=== PATIENT | female | born 1975 | race American Indian/Alaskan Native ===

== ENCOUNTER 2019-11-09 10:25 | Outpatient (CLI) | payer MEDICARE ==
--- NOTE | 2019-11-09 14:26 | Magnetic Resonance Report ---
BILATERAL BREAST MR WITHOUT AND WITH GADOLINIUM INDICATION: Newly diagnosed left breast cancer. COMPARISONS: None available. TECHNIQUE: Axial 1.0 mm T1 without, axial high-resolution 2.0 mm T2 and axial 1.0 mm dynamic vibrant high-resolution postcontrast T1 fat saturation sequences on a 1.5 Anabella magnet. The examination was p erformed with an 8-channel dedicated [place] breast coil. Post-processing with CAD and subtraction was performed on an [employer] workstation. 18.0 cc of MultiHance was injected for the contrast portion o f the exam. Consent was obtained prior to the administration of the contrast. The patient became naus eated with a contrast injection but was able to finish the exam. FINDINGS: RIGHT BREAST: Mild background parenchymal enhancement. No mass enhancement. No suspicious lymph nodes . LEFT BREAST: Mild background parenchymal enhancement. The known cancer is an oval relatively smooth u pper outer quadrant mass 16 cm from the nipple measuring 5.5 x 4.0 x 4.3 cm. It demonstrates heteroge neous enhancement with mixed kinetics, rapid initial enhancement, 275% peak enhancement and 24% type III washout. The mass demonstrates heterogeneous T2 signal with multiple areas of T2 hyperintensity. No other mass or suspicious enhancement. Several suspicious left axillary lymph nodes. The largest is a level 2 axillary lymph node measuring approximately 3.3 cm. IMPRESSION: 1. A known 5.5 cm left breast cancer and no additional suspicious lesion of either breast. 2. Enlarged left axillary lymph node suspicious for axillary metastasis. FINAL ASSESSMENT: BI-RADS Category 6: Known cancer A normal MRI does not exclude the presence of some forms of breast malignancy as literature reports s uggest that some forms of ductal carcinoma in situ or lobular carcinoma, particularly, may not be det ected on MRI. The sensitivity and specificity of MRI for cancers under 5 mm may be reduced. MRI does not replace the recommendation for annual conventional mammographic evaluation and should be used as an adjunct to mammography and physical examination as necessary. Signer Name: Brannon Lu MD Signed: 11/09/2019 2:21 PM Workstation Name: [id number]
--- NOTE | 2019-11-09 15:09 | Ultrasound Report ---
ULTRASOUND-GUIDED NEEDLE CORE BIOPSY LEFT AXILLARY LYMPH NODE WITH CLIP PLACEMENT CLINICAL: Newly diagnosed left breast cancer and left axillary lymphadenopathy. FINDINGS: The procedure was explained to the patient and informed consent was obtained. Ultrasound demonstrated a dominant 3+ centimeter left axillary lymph node.. I marked the breast with a felt tip marker and a timeout was called. The skin was prepped with Chloro -Prep and anesthetized with 1% lidocaine. Needle core biopsy was performed through small dermatotomy using ultrasound guidance, 2% lidocaine wi th epinephrine for deep anesthesia and an 18-gauge coaxial Achieve biopsy device. 3 cores were obtain ed and placed in formalin. A clip was deployed within the lymph node. The patient tolerated the procedure well and there were no apparent complications. Hemostasis was ach ieved with minimal effort and a sterile dressing was applied. IMPRESSION: Uncomplicated ultrasound guided needle core biopsy with clip placement left axillary lymp h node. Signer Name: Brannon Lu MD Signed: 11/09/2019 3:04 PM Workstation Name: [id number]
== END 2019-11-09 10:26 | disposition home or self-care (01) ==
LOC: SPVIMAG 10:25
PROVIDERS: ATTEND Surgery
DX: C50.412 Malignant neoplasm of upper-outer quadrant of left female breast (principal)
CPT/HCPCS: 38505; 76942; 88305; A9577; C8908; 77049

== ENCOUNTER 2019-11-16 08:01 | Outpatient (CLI) | payer MEDICARE ==
[2019-11-16 09:20] LABS: Blood Urea Nitrogen 15 mg/dL (7-17)
--- NOTE | 2019-11-16 11:12 | Cat Scan Report ---
CT CHEST WITH CONTRAST HISTORY: Newly diagnosed left breast cancer. COMPARISON: MRI breast 09/09/2019 TECHNIQUE: Routine chest CT exam performed following intravenous contrast administration.. All CT sc ans at this location are performed using CT dose reduction for ALARA by means of automated exposure c ontrol. CONTRAST: 100 mL Omnipaque 350 FINDINGS: CT CHEST: Lungs: Clear with no pulmonary nodule or mass. No pleural effusion. Trachea and Bronchi: No significant abnormality. Heart and Pericardium: No significant abnormality. Vasculature: No significant abnormality. Lymphatics: Left axillary and left subpectoral lymphadenopathy. A 2.9 cm left subpectoral lymph node contains a biopsy clip and correlates with the recently biopsied lymph node. Numerous additional smal ler left subpectoral lymph nodes and at least a couple of small but suspicious left supraclavicular l ymph nodes. These lymph nodes are suspicious based on the fact that they are asymmetric when compared to the right side. Osseous Structures: No suspicious bone lesions. Additional Findings: The known left breast cancer is an oval slightly irregular circumscribed mass in the upper outer quadrant measuring 4.8 x 4.5 cm. There is also skin thickening and soft tissue stran ding of the left breast. IMPRESSION: 1. A known 5 cm left breast cancer. 2. Left axillary and left subpectoral metastatic lymphadenopathy. 3. Small but suspicious left supraclavicular lymph nodes. 4. No pulmonary, mediastinal or skeletal metastasis. Signer Name: Brannon Lu MD Signed: 11/16/2019 11:10 AM Workstation Name: [id number]
--- NOTE | 2019-11-16 11:38 | Cat Scan Report ---
CT abdomen pelvis w con INDICATION: BREAST CANCER. TECHNIQUE: All CT scans at this location are performed using the following dose modulation technique: Automated exposure control. CONTRAST: Omnipaque 300, 100 cc IV injection. COMPARISON: None available. CT ABDOMEN: The parenchymal organs are unremarkable in appearance other than a 1.3 cm left adrenal no dule which is relatively low in density. Negative for abdominal mass, fluid or inflammation. The hilary l is not dilated or thickened. CT PELVIS: Negative for mass, adenopathy or inflammation. No suspicious bony lesion. IMPRESSION: 1. Probable left adrenal adenoma. 2. No suspicious bony or soft tissue lesion. Signer Name: Madhu Aguirre MD Signed: 11/16/2019 11:33 AM Workstation Name: [id number]
--- NOTE | 2019-11-16 13:37 | Nuclear Medicine Report ---
NUCLEAR MEDICINE BONE SCAN, WHOLE BODY INDICATION / CLINICAL INFORMATION: BREAST CANCER. Staging. TECHNIQUE: 26th mCi of Tc-99m MDP were injected IV. Images were obtained of the whole body. COMPARISON: Same-day CT of the chest, abdomen and pelvis FINDINGS: ARTICULAR STRUCTURES: Mild, relatively symmetric, periarticular activity which is likely degenerative . SKELETAL LESIONS: None. SOFT TISSUES: Normal. KIDNEYS: Normal. ADDITIONAL FINDINGS: None. IMPRESSION: 1. No significant scintigraphic abnormality. Signer Name: Efrain Martin MD Signed: 11/16/2019 1:33 PM Workstation Name: [id number]
== END 2019-11-16 08:02 | disposition home or self-care (01) ==
LOC: NM 08:01
PROVIDERS: ATTEND Surgery
DX: C50.412 Malignant neoplasm of upper-outer quadrant of left female breast (principal); C77.9 Secondary and unspecified malignant neoplasm of lymph node, unspecified
CPT/HCPCS: 36415; 71260; 74177; 78306; 82565; 84520; A9503; Q9967; U0003-CS

== ENCOUNTER 2019-11-17 14:30 | Day surgery (SDC) | payer MEDICARE ==
--- NOTE | 2019-11-16 17:25 | Short Stay Summary ---
Short Stay Documentation Date of service: 11/17/19 - History H&P: obtained from office - Allergies and Medications Current Medications: Allergies sulfamethoxazole [From Bactrim] Allergy (Verified 11/10/19 13:06) Hives trimethoprim [From Bactrim] Allergy (Verified 11/10/19 13:06) Hives Home Medications Medication Instructions Recorded Confirmed Last Taken Type Albuterol Sulfate [Proventil Hfa] 2 puff IH PRN PRN 11/10/19 11/10/19 Unknown History Budesonide/Formoterol Fumarate 2 puff IH PRN PRN 11/10/19 11/10/19 Unknown History [Symbicort 160-4.5 Mcg Inhaler] Doxycycline Hyclate [Doxycycline 100 mg PO Q12HR 11/10/19 11/10/19 Unknown History Hyclate TAB] Insulin NPH Human Isophane 10 unit SQ QAM 11/10/19 11/10/19 Unknown History [Novolin N Flexpen] Insulin NPH Human Isophane 12 unit SQ BID 11/10/19 11/10/19 Unknown History [Novolin N Flexpen] Losartan [Cozaar] 100 mg PO QDAY 11/10/19 11/10/19 Unknown History amLODIPine [Norvasc] 5 mg PO DAILY 11/10/19 11/10/19 Unknown History - Physical exam General appearance: no acute distress Lungs: Normal air movement Neurological: Normal speech - Brief post op/procedure progress note Date of procedure: 11/17/19 (dictation:[id number]) Pre-op diagnosis: left breast cancer Post-op diagnosis: same Procedure: US guided port placement IVF 700cc EBL min Anesthesia: GETA Findings: normal anatomy Surgeon: LADAN RIVERO Estimated blood loss: minimal Pathology: none Condition: stable - Hospital course Hospital course: uneventful - Disposition Condition at discharge: Stable Disposition: DC-01 TO HOME OR SELFCARE Short Stay Discharge Plan Activity: advance as tolerated Diet: regular Wound: open to air, keep clean and dry Special Instructions: no heavy lifting Additional Instructions: Post Operative Instructions Activity: no heavy lifting for next 1 week. May shower tomorrow. Pat dry the wound or wounds. Keep incision sites clean and dry After surgery, start with a light diet. Consider starting with liquids. If you do well, you can advance to a regular diet as you feel comfortable. Apply an ice pack to the wound or wounds for 10-20 minutes at a time. Do this at least 4-5 times a day. You can do it more if he would like. Pain Medication Schedule for the first 2 days after surgery: Gabapentin 300mg twice a day Tylenol 500mg four times a day (every 6 hours) After the first 2 days, then take alternating doses of ibuprofen and Tylenol as needed for pain. Take 600 mg of ibuprofen every 6 hours as needed. Take 500 mg of Tylenol every 6 hours as needed. You should alternate these 2 medicines. Make sure you take the ibuprofen with food. It is very important that you use the prescription narcotic pain medicine (hydrocodone) only for very severe pain. Do not take the narcotic medicine before you try using all the medications listed above. YOU WERE MEDICATED WITH 1 HYDROCODONE TAB BY MOUTH AT 520 PM START OTHER PAIN MEDICATION (GABAPENTIN EVERY 12 HOURS AND TYLENOL WHEN YOU GET HOME . We will call you in a couple of days to see how youre doing. If you have any questions or concerns, always feel free to call the clinic ([phone]) at any time. Follow up with: GAUTAM URRUTIA MD [Primary Care Provider] - 7 Days Forms: Outpatient Surgery DC Inst. Prescriptions: Gabapentin 300 mg PO BID #4 capsule HYDROcodone/APAP 5-325 [Merino 5-325 mg TAB] 1 each PO Q6HR PRN #10 tablet PRN Reason: Pain , Severe (7-10)
[2019-11-17] MEDS: MIDAZOLAM 2 MG/2 ML INJ IV NR ×2 (12:10→14:00)
--- NOTE | 2019-11-17 12:21 | Anesthesia Consultation ---
Anesthesia Consult and Med Hx Date of service: 11/17/19 - Airway Anesthetic Teeth Evaluation: Good ROM Head & Neck: Adequate Mental/Hyoid Distance: Adequate Mallampati Class: Class II Intubation Access Assessment: Probably Good - Pulmonary Exam CTA: Yes - Cardiac Exam Cardiac Exam: RRR - Pre-Operative Health Status ASA Pre-Surgery Classification: ASA3 Proposed Anesthetic Plan: General - Pulmonary Hx Smoking: Yes (quit 10 yrs ago) Hx Respiratory Symptoms: Yes (chronic bronchitis; used albuterol today) SOB: No Hx Sleep Apnea: No (ARCHIE PRE SCREEN LOW RISK) - Cardiovascular System Hx Hypertension: Yes (took antihypertensives today) Hx Heart Attack/AMI: No Hx Percutaneous Transluminal Coronary Angioplasty (PTCA): No - Central Nervous System CVA: No Hx Psychiatric Problems: Yes (anxiety/depression) - Gastrointestinal Hx Gastroesophageal Reflux Disease: Yes - Endocrine Hx Renal Disease: No Hx Liver Disease: No Hx Insulin Dependent Diabetes: Yes (suboptimal control) Hx Thyroid Disease: No - Hematic Hx Anemia: Yes - Other Systems Hx Cancer: Yes (breast Ca) - Additional Comments Anesthesia Medical History Comments: No hx anesthetic complications. Reports that preop glucose is at usual fasting level.
--- NOTE | 2019-11-17 12:21 | Anesthesia Day of Surgery ---
Anesthesia Day of Surgery - Day of Surgery Patient Examined: Yes Patient H&P Reviewed: Yes Patient is NPO: Yes
[~2019-11-17 14:30] MED LIST: ACETAMINOPHEN 500 MG TAB PO SCH; BUPIVACAINE-EPINEPHRINE/PF 0.5%-1:200,000 (30 ML) VIAL INFILTRATI ONE; CELECOXIB 200 MG CAP PO NR; GABAPENTIN 300 MG CAP PO NR; GELATIN SPONGE SIZE 100 TP ONE; HEPARIN 10,000 UNITS/10 ML VIAL ONE; HYDROmorphone 1 MG/1 ML INJ ONE; LACTATED RINGERS 1,000 ML IV SCH; LIDOCAINE (1%) 10 MG/1 ML VIAL 20 ML MDV ONE; LIDOCAINE MPF (2%) 20 MG/1 ML VIAL 5 ML ONE; SCOPOLAMINE TRANSDERMAL PATCH 72 HR TD NR; SODIUM CHLORIDE 0.9% 250ML 250 ML ONE; ceFAZolin/Water 2 GM/20 ML 2 GM/20 ML SYRINGE IV NR; fentaNYL 100 MCG/2 ML INJ IV PRN; propofoL 200 MG/20 ML VIAL IV ONE
[2019-11-17] MEDS ORDERED: SODIUM CHLORIDE P/F VIAL 10 ML 10 ML ONE (14:38)
[2019-11-17] MEDS ORDERED: BUPIVACAINE-EPINEPHRINE/PF 0.5%-1:200,000 (30 ML) VIAL INFILTRATI ONE (15:05)
[2019-11-17] MEDS ORDERED: HEPARIN 10,000 UNITS/10 ML VIAL IV ONE (15:06)
[2019-11-17] MEDS ORDERED: SODIUM CHLORIDE 0.9% 100 ML IVPB IV ONE (15:06)
[2019-11-17] MEDS ORDERED: SODIUM CHLORIDE 0.9% P/F 10 ML VIAL INFILTRATI ONE (15:06)
[2019-11-17] MEDS ORDERED: LIDOCAINE (1%) 10 MG/1 ML VIAL 20 ML MDV INFILTRATI ONE (15:06)
[2019-11-17] MEDS ORDERED: SODIUM CHLORIDE 0.9% IRR 1,500 ML BOTTLE IR ONE (15:06)
[2019-11-17] MEDS ORDERED: ONDANSETRON 4 MG/2 ML INJ ONE (15:32)
--- NOTE | 2019-11-17 16:17 | Fluoroscopy Report ---
INTRAOPERATIVE FLUOROSCOPY: CHEST INDICATION: PORT INSERTION/LT BREAST CANCER/POOR VENOUS ACCESS. TECHNIQUE: Intraoperative spot images were obtained during the procedure. FINDINGS: A right internal jugular vein Port-A-Cath terminates over the cavoatrial junction. No acute abnormali ty is seen. Please see the operative report for further details. Fluoroscopy Time: 22 seconds. Fluoroscopy Images: 1. Signer Name: Marcell Costa MD Signed: 11/17/2019 4:12 PM Workstation Name: [id number]
[2019-11-17] MEDS ORDERED: HYDROcodone/ACETAMINOPHEN 5-325 MG TAB PO PRN (17:18)
--- NOTE | 2019-11-17 17:19 | Operative Report ---
PREOPERATIVE DIAGNOSIS: Left breast cancer. POSTOPERATIVE DIAGNOSIS: Left breast cancer. PROCEDURES: 1. Insertion of tunneled centrally inserted central venous access device with subcutaneous port. 2. Ultrasound guidance for vascular access. ATTENDING PHYSICIAN: Hernando Bush MD ANESTHESIA: General. ESTIMATED BLOOD LOSS: Minimal. FLUIDS: 700 mL. FINDINGS: Normal anatomy. IMPLANTS: Smart Port. COMPLICATIONS: None. DISPOSITION: Stable, transferred to Recovery Room. INDICATIONS: This is a 44-year-old female with a recent diagnosis of left breast cancer. The patient in need of neoadjuvant chemotherapy. The patient referred to General Surgery for port placement. Procedure, risks, benefits were explained to the patient. Risks include but were not limited to infection, bleeding, pain, injury to surrounding structures, possible port malfunction, possible need for replacement and/or removal. The patient understood and consented. OPERATIVE NOTE: The patient was brought to the operating room and placed on the table in supine position. After adequate general anesthesia was established, ultrasound evaluation was done of subclavian vein and internal jugular vein, subclavian vein was found to be fairly deep, jugular vein was in a good location, widely patent and no evidence of any narrowing, no clots. This appeared to be the better target. Roll was placed underneath the shoulders. Sterile prep and drape was performed. Pressure points were padded. SCDs were in place. Antibiotics have been given. Time-out was called. I began by anesthetizing the planned access point. This was done under ultrasound guidance. I anesthetized the planned tract site as well under ultrasound guidance. Small incision was made in the skin under ultrasound guidance. Introducer needle was advanced into the vein. I was able to aspirate venous blood on the first attempt. Guidewire passed very easily. We confirmed its location with fluoroscopy. Guidewire was secured to the drapes. We then turned our attention to the subcutaneous pocket. Planned pocket site was anesthetized. A curvilinear incision was made. Pocket was created. Hemostasis was achieved with electrocautery. Additional local was injected. We made sure the port fit easily and then we passed the tunneler up to the neck. This went very smoothly as we had anesthetized the site and dilated the tissue within local anesthetic. Once the catheter was brought out from the neck, dilator and sheath were passed over the wire, it went very easily. Catheter was inserted, length was adjusted and then we attached to the port. We had some difficulty in aspirating and flushing, initially, it appeared as though at the neck site there was a slight kink. We freed up some of the surrounding tissue around that area and then it flowed very easily. It seemed as though because this was a small catheter 6.6 Greek and fairly soft, I think it was more prone to kinking; however, with slight pressure on the neck it then worked very nicely. My thought was that as time passes and the port was pulled down by the weight of the breast, I thought this kink would resolve itself as it required very little pressure to straighten it out. Therefore, I did not do any further dissection as it was working well. Additional local was injected, 3-0 Vicryl was used to close the deep tissue at the port site, 4-0 Monocryl subcuticular stitches were then placed. Skin was cleaned and dried. Dermabond was placed. Postoperative chest x-ray showed no evidence of any complications. JOB# [id number] RADHA/REMINGTON
[2019-11-17] MEDS ORDERED: HYDROcodone/ACETAMINOPHEN 5-325 MG TAB ONE (17:20)
[2019-11-17 18:38] VITALS: BP 151/75
--- NOTE | 2019-11-17 19:20 | Post Anesthesia Evaluation ---
- Post Anesthesia Evaluation Patient Participated: Yes Airway Patent: Yes Stable Respiratory Function: Yes Nausea/Vomiting: No Temp > 96.8F: Yes Pain Manageable: Yes Adequeate Hydration: Yes Anesthesia Complications: No
== END 2019-11-17 14:31 | disposition home or self-care (01) ==
LOC: OR 14:30
PROVIDERS: ATTEND Surgery
DX: C50.912 Malignant neoplasm of unspecified site of left female breast (principal); Z11.59 Encounter for screening for other viral diseases; I10 Essential (primary) hypertension; K21.9 Gastro-esophageal reflux disease without esophagitis; M19.90 Unspecified osteoarthritis, unspecified site; E11.9 Type 2 diabetes mellitus without complications; F31.9 Bipolar disorder, unspecified; F41.9 Anxiety disorder, unspecified; Z79.899 Other long term (current) drug therapy; Z79.4 Long term (current) use of insulin; Z87.891 Personal history of nicotine dependence; Z86.2 Personal history of diseases of the blood and blood-forming organs and certain disorders involving the immune mechanism; Z88.8 Allergy status to other drugs, medicaments and biological substances; Z98.891 History of uterine scar from previous surgery
CPT/HCPCS: 36561; 76937; 77001; 81025; 82962; C1788; J0690; J1170; J1644; J2250; J2405; J2704; J7050; J7120; U0003; A4649

== ENCOUNTER 2020-05-30 05:47 | Day surgery (SDC) | payer MEDICARE ==
[~2020-05-30 05:47] MED LIST changes: -ACETAMINOPHEN 500 MG TAB PO SCH; -BUPIVACAINE-EPINEPHRINE/PF 0.5%-1:200,000 (30 ML) VIAL INFILTRATI ONE; -CELECOXIB 200 MG CAP PO NR; -GABAPENTIN 300 MG CAP PO NR; -GELATIN SPONGE SIZE 100 TP ONE; -HEPARIN 10,000 UNITS/10 ML VIAL ONE; -HYDROmorphone 1 MG/1 ML INJ ONE; -LACTATED RINGERS 1,000 ML IV SCH; -LIDOCAINE (1%) 10 MG/1 ML VIAL 20 ML MDV ONE; -LIDOCAINE MPF (2%) 20 MG/1 ML VIAL 5 ML ONE; -SCOPOLAMINE TRANSDERMAL PATCH 72 HR TD NR; -SODIUM CHLORIDE 0.9% 250ML 250 ML ONE; -fentaNYL 100 MCG/2 ML INJ IV PRN; -propofoL 200 MG/20 ML VIAL IV ONE
[2020-05-30] MEDS ORDERED: ceFAZolin/Water 2 GM/20 ML 2 GM/20 ML SYRINGE IV NR (06:00)
[2020-05-30] MEDS ORDERED: BACTERIOSTATIC SODIUM CHLORIDE 0.9% 30 ML VIAL INFILTRATI ONE (06:42)
--- NOTE | 2020-05-30 07:10 | Anesthesia Day of Surgery ---
Anesthesia Day of Surgery - Day of Surgery Patient Examined: Yes Patient H&P Reviewed: Yes Patient is NPO: Yes
--- NOTE | 2020-05-30 07:13 | Anesthesia Consultation ---
Anesthesia Consult and Med Hx Date of service: 05/30/20 - Airway Anesthetic Teeth Evaluation: Good (Missing) ROM Head & Neck: Adequate Mental/Hyoid Distance: Adequate Mallampati Class: Class II Intubation Access Assessment: Good - Pre-Operative Health Status ASA Pre-Surgery Classification: ASA2 Proposed Anesthetic Plan: General Nerve Block: ES/TAP - Pulmonary Hx Smoking: Yes (STOPPED X 10 YRS) - Cardiovascular System Hx Hypertension: Yes (since 1995) - Central Nervous System Hx Psychiatric Problems: Yes (Anxiety/Panic attacks/Bipolar/Depression) - Gastrointestinal Hx Ulcer: Yes Hx Gastroesophageal Reflux Disease: Yes - Endocrine Hx Non-Insulin Dependent Diabetes: Yes - Hematic Hx Anemia: Yes - Other Systems Hx Cancer: Yes - Additional Comments Anesthesia Medical History Comments: Here [id number]
[2020-05-30] MEDS ORDERED: ACETAMINOPHEN 500 MG TAB PO NR (07:36)
[2020-05-30] MEDS ORDERED: HYDROmorphone 1 MG/1 ML INJ IV PRN ×2 (07:36)
[2020-05-30] MEDS ORDERED: ONDANSETRON 4 MG/2 ML INJ IV PRN (07:36)
[2020-05-30] MEDS ORDERED: MAGNESIUM OXIDE 400 MG TAB PO NR (07:36)
[2020-05-30] MEDS ORDERED: LIDOCAINE (1%) 10 MG/1 ML VIAL 20 ML MDV ONE (07:42)
[2020-05-30] MEDS ORDERED: LACTATED RINGERS 1,000 ML IV SCH (07:45)
[2020-05-30] MEDS ORDERED: GABAPENTIN 300 MG CAP PO NR (08:00)
[2020-05-30] MEDS ORDERED: MIDAZOLAM 2 MG/2 ML INJ IV NR (08:00)
--- NOTE | 2020-05-30 08:58 | Mammography Report ---
LEFT BREAST NEEDLE LOCALIZATION USING X-RAY GUIDANCE The procedure was explained to the patient and informed consent obtained. PROCEDURE: Using 3 mL of 1% buffered lidocaine, a 25 gauge needle and x-ray guidance, the left breas t lesion in the upper outer quadrant containing a surgical clip was localized with standard needle/wi re technique. There were no immediate complications. INTERPRETATION: 2 images made during the procedure demonstrate the needle to be properly positioned. IMPRESSION: Successful left breast lesion localization as described above. Thank you for allowing us to participate in the care of your patient. Signer Name: Nacho Nunes Jr, MD Signed: 05/30/2020 8:54 AM Workstation Name: [id number]
[2020-05-30] MEDS ORDERED: METHYLENE BLUE 50 MG/10 ML AMP ONE (10:17)
[2020-05-30] MEDS ORDERED: SODIUM CHLORIDE P/F VIAL 10 ML 10 ML ONE ×2 (10:17→12:21)
[2020-05-30] MEDS ORDERED: fentaNYL 100 MCG/2 ML INJ ONE ×2 (10:49→12:04)
[2020-05-30] MEDS ORDERED: BUPIVACAINE/PF (0.25%) 2.5 MG/ML 30 ML VIAL INFILTRATI ONE (10:50)
[2020-05-30] MEDS ORDERED: ROCURONIUM 50 MG/5 ML INJ IV ONE (12:03)
[2020-05-30] MEDS ORDERED: LIDOCAINE MPF (2%) 20 MG/1 ML VIAL 5 ML ONE (12:03)
[2020-05-30] MEDS ORDERED: propofoL 200 MG/20 ML VIAL IV ONE (12:03)
[2020-05-30] MEDS ORDERED: KETAMINE/STERILE WATER 50 MG/ML SYRINGE ONE (12:03)
[2020-05-30] MEDS ORDERED: SUCCINYLCHOLINE CHLORIDE 200 MG/10 ML INJ MDV ONE (12:07)
[2020-05-30] MEDS ORDERED: ePHEDrine SULFATE 50 MG/1 ML INJ ONE (12:21)
[2020-05-30] MEDS ORDERED: WATER FOR IRRIG STERILE 1,500 ML BOTTLE IR ONE (13:34)
[2020-05-30] MEDS ORDERED: SODIUM CHLORIDE 0.9% P/F 10 ML VIAL IV ONE (13:35)
[2020-05-30] MEDS ORDERED: METHYLENE BLUE 50 MG/10 ML AMP IRRIGATION ONE (13:35)
[2020-05-30] MEDS ORDERED: LACTATED RINGERS 1,000 ML ONE (13:51)
[2020-05-30] MEDS ORDERED: HYDROmorphone 1 MG/1 ML INJ ONE (13:51)
[2020-05-30] MEDS ORDERED: ONDANSETRON 4 MG/2 ML INJ ONE (14:00)
--- NOTE | 2020-05-30 14:36 | Mammography Report ---
Left breast surgical specimen INDICATION: Left breast malignancy.. COMPARISON: 09/21/2019. FINDINGS: Surgical specimen radiograph is submitted. This demonstrates the biopsy marker located cent rally within the surgical specimen. IMPRESSION: Left breast surgical specimen radiograph documenting biopsy marker located centrally within the speci men. Signer Name: Leander Oscar MD Signed: 05/30/2020 2:32 PM Workstation Name: [id number]
--- NOTE | 2020-05-30 14:50 | Operative Report ---
Operative Report Operative Report: Operative Report: May 30, 2020 Preoperative diagnosis: Left breast cancer of the upper outer quadrant Postoperative diagnosis: Same Procedure: Left needle localization partial mastectomy of the upper outer quadrant and SLNB Surgeon: Jennie Hunter MD Sweet Potato Disintegrator: Edmundo Farias MD Anesthesia: General Findings: Left wire and clip present within radiograph specimen; x1 SLN-clip present within lymph node Complications: None EBL: Minimal Disposition: PACU in good condition Indications for operative procedure: This is a 44 year old lady with left breast cancer of the upper outer quadrant, Stage II [id number] triple negative (prior left breast cancer mass 1:00 position 12 cm from the nipple of 3.9 cm). She completed neoadjuvant chemotherapy and followup imaging prior left breast cancer not well seen. Recommendations were to proceed with breast conservation. She understood the role of adjuvant radiation therapy. She understood if SLN was found positive on final pathology possibility of proceeding with an ALND may be recommended. She wished to proceed with the above procedure. Procedure in detail: The patient was taken to radiology for wire placement for localization known area of cancer. Anesthesia placed left pectoral block. Patient was then taken to the operating room. Gen. anesthesia was administered. The left nipple was injected with radioisotope adn 1 cc of methylene blue dye. Left breast and axilla were prepped and draped in the normal sterile operative fashion. The wire was identified. Timeout was performed. Gamma probe was inserted into the axilla. Ultrasound was used as well to identify the prior axillary lymph node biopsied. The area of hot spot was identified. A left axillary incision was made with a 15 blade knife with dissection taken down to the subcutaneous tissues. The axillary fascia was opened with the Bovie cautery. One SLN was identified with clip present. There no remaining counts in the axilla. Lymph node was sent to pathology for permanent processing. Hemostasis was obtained in the right axillary cavity. Axillary cavity was appropriately irrigated and suctioned. Hemostasis was noted. Axillary fascia was approximated and closed using interrupted 3-0 Vicryl. Attention was then taken towards the left breast. The axillary incision was used given axillary tail cancer location. First began raising of the superior flap with removal of the wire from the skin with dissection take down to the pectoralis muscle, followed by raising of the inferior flap, medial flap and lateral flap with all flaps taken down to the pectoralis muscle and pass the area of known malignancy. The breast area of concern was appropriately removed posteriorly from the pectoralis muscle with the aid of the Bovie cautery. The wire was not encountered. Specimen was marked and then sent to pathology and radiology; radiograph specimen with wire and clip present. Breast cavity was irrigated and hemostasis was obtained. Then proceeded with complex closure. The posterior deep breast tissues were approximated and closed using interrupted 3-0 Vicryl. The subcutaneous tissues were approximated and closed using interrupted 3-0 Vicryl followed by closing of the skin with a running 4-0 Monocryl and skin affix. The patient tolerated surgery very well and she was awaken from anesthesia without any complication and transported to PACU in good condition.
--- NOTE | 2020-05-30 14:53 | Short Stay Summary ---
Short Stay Documentation Date of service: 05/30/20 - History H&P: obtained from office - Allergies and Medications Current Medications: Allergies sulfamethoxazole [From Bactrim] Allergy (Verified 05/07/20 15:32) Hives trimethoprim [From Bactrim] Allergy (Verified 05/07/20 15:32) Hives insulin glargine [From Basaglar KwikPen U-100 Insulin] Adverse Reaction (Verified 05/07/20 15:32) Itching Home Medications Medication Instructions Recorded Confirmed Last Taken Type Albuterol Sulfate [Proventil Hfa] 2 puff IH PRN PRN 11/10/19 05/07/20 1 Month Ago History ~10/17/19 Budesonide/Formoterol Fumarate 2 puff IH PRN PRN 11/10/19 05/07/20 11/17/19 06:30 History [Symbicort 160-4.5 Mcg Inhaler] Insulin NPH Human Isophane 10 unit SQ QAM 11/10/19 05/30/20 05/29/20 09:00 History [Novolin N Flexpen] Insulin NPH Human Isophane 12 unit SQ TID 11/10/19 05/30/20 05/29/20 20:00 History [Novolin N Flexpen] Losartan [Cozaar] 100 mg PO QDAY 11/10/19 05/30/20 05/29/20 20:00 History HYDROcodone/APAP 5-325 [Venetia 1 each PO Q6HR PRN #10 tablet 11/17/19 05/07/20 Unknown Rx 5-325 mg TAB] Atenolol/Chlorthalidone 50 mg PO DAILY 05/30/20 05/30/20 05/29/20 20:00 History oxyCODONE /ACETAMINOPHEN [Percocet 1 tab PO Q6HR PRN #20 tablet 05/30/20 Unknown Rx 5/325] Active Medications Acetaminophen (Acetaminophen 500 Mg Tab) 1,000 mg PO ONCE NR Stop: 05/30/20 16:00 Last Admin: 05/30/20 09:15 Dose: 1,000 mg Documented by: Gabapentin (Gabapentin 300 Mg Cap) 600 mg PO PREOP NR Stop: 05/30/20 20:00 Hydromorphone HCl (Hydromorphone 1 Mg/1 Ml Inj) 0.25 mg IV Q10MIN PRN PRN Reason: Pain, Moderate (4-6) Stop: 05/30/20 20:00 Hydromorphone HCl (Hydromorphone 1 Mg/1 Ml Inj) 0.5 mg IV Q10MIN PRN PRN Reason: Pain , Severe (7-10) Stop: 05/30/20 20:00 Cefazolin Sodium (Ancef/Sterile Water 2 Gm/20 Ml) 2 gm in 20 mls @ 80 mls/hr IV PREOP NR; Protocol Stop: 05/30/20 23:59 Lactated Ringer's (Lactated Ringers) 1,000 mls @ 125 mls/hr IV DIRECT AARON Last Admin: 05/30/20 09:10 Dose: 125 mls/hr Documented by: Magnesium Oxide (Magnesium Oxide 400 Mg Tab) 400 mg PO ONCE NR Stop: 05/30/20 20:00 Last Admin: 05/30/20 09:15 Dose: 400 mg Documented by: Midazolam HCl (Midazolam 2 Mg/2 Ml Inj) 2 mg IV PREOP NR Stop: 05/30/20 23:59 Ondansetron HCl (Ondansetron 4 Mg/2 Ml Inj) 4 mg IV ONCE PRN PRN Reason: Nausea And Vomiting Stop: 05/30/20 20:00 - Brief post op/procedure progress note Date of procedure: 05/30/20 Pre-op diagnosis: Left breast cancer upper outer quadrant Post-op diagnosis: same Procedure: Left needle localization partial mastectomy and SLNB Anesthesia: GETA Findings: Left clip and wire present within partial mastectomy; x1 SLN with clip present Surgeon: YOHANNES DAVALOS Estimated blood loss: minimal Pathology: list Specimen disposition: to lab Condition: stable - Disposition Condition at discharge: Good Disposition: DC-01 TO HOME OR SELFCARE Short Stay Discharge Plan Activity: other (no heavy lifting) Diet: regular Wound: keep clean and dry (wear breast binder; may shower in 48 hours; no baths) Follow up with: YOHANNES DAVALOS MD [Staff Physician] - 7 Days Prescriptions: oxyCODONE /ACETAMINOPHEN [Percocet 5/325] 1 tab PO Q6HR PRN #20 tablet PRN Reason: Pain
--- NOTE | 2020-05-30 17:46 | Post Anesthesia Evaluation ---
- Post Anesthesia Evaluation Patient Participated: Yes Airway Patent: Yes Stable Respiratory Function: Yes Nausea/Vomiting: No Temp > 96.8F: Yes Pain Manageable: Yes Adequeate Hydration: Yes Anesthesia Complications: No Block Receding Appropriately: Yes Patient on Ventilator: No
[2020-05-30 19:44] VITALS: BP 132/82
== END 2020-05-30 05:48 | disposition home or self-care (01) ==
LOC: OR 05:47
PROVIDERS: ATTEND Surgery
DX: C50.412 Malignant neoplasm of upper-outer quadrant of left female breast (principal); Z20.828 Contact with and (suspected) exposure to other viral communicable diseases; I89.8 Other specified noninfective disorders of lymphatic vessels and lymph nodes; I10 Essential (primary) hypertension; K21.9 Gastro-esophageal reflux disease without esophagitis; M19.90 Unspecified osteoarthritis, unspecified site; E11.9 Type 2 diabetes mellitus without complications; F31.9 Bipolar disorder, unspecified; F41.9 Anxiety disorder, unspecified; Z98.890 Other specified postprocedural states; Z88.8 Allergy status to other drugs, medicaments and biological substances; Z79.899 Other long term (current) drug therapy; Z79.4 Long term (current) use of insulin; Z87.891 Personal history of nicotine dependence; Z86.2 Personal history of diseases of the blood and blood-forming organs and certain disorders involving the immune mechanism
CPT/HCPCS: 19281; 19301; 38525; 38792; 64450; 76098; 76942; 78800; 81025; 82962; 88307; 88333; A9541; J0330; J0690; J1170; J2250; J2405; J2704; J3010; J7120; Q9968; U0003; 88341; 88342; J3490

== ENCOUNTER 2020-11-15 09:02 | Outpatient (CLI) | payer MEDICARE ==
--- NOTE | 2020-11-15 14:07 | Nuclear Medicine Report ---
NM bone scan whole body INDICATION / CLINICAL INFORMATION: MALIGNANT NEOPLASM OF UPPER-OUTER QUADRANT OF LEFT FEMALE BREAST. TECHNIQUE: 25.3 mCi of Tc-99m MDP were injected IV. COMPARISON: No relevant prior imaging study available. FINDINGS: BONES: No osseous lesion or other abnormality. JOINTS: Degenerative activity. SOFT TISSUES: No significant abnormality. ADDITIONAL FINDINGS: None. IMPRESSION: 1. No evidence for osseous metastatic disease. Signer Name: Jostin Augustin MD Signed: 11/15/2020 2:02 PM Workstation Name: [id number]
--- NOTE | 2020-11-15 14:13 | Cat Scan Report ---
CT abdomen pelvis w con, CT chest w con INDICATION / CLINICAL INFORMATION: MAIN. TECHNIQUE: Axial CT images were obtained through the chest, abdomen and pelvis. All CT scans at this location ar e performed using CT dose reduction for ALARA by means of automated exposure control. COMPARISON: November 2019 CT chest abdomen pelvis. FINDINGS: CHEST: Right port terminates in the right atrium. Lungs: No suspicious pulmonary nodule. Lungs are clear No pleural effusion. No pneumothorax. Heart: No significant abnormality. Mediastinum: No significant abnormality. Lymph nodes: No bertha metastasis identified. ADDITIONAL FINDINGS: Thickened linear soft tissue seen within the postoperative bed of the left breas t in the lumpectomy site. ABDOMEN and PELVIS: Liver: No significant abnormality. Biliary: No significant abnormality. Spleen: No significant abnormality. Unenlarged. Pancreas: No significant abnormality. Adrenals: No significant abnormality. Kidneys: No significant abnormality. Lymphatics: No lymphadenopathy. Vasculature: No significant abnormality. Bowel: No significant abnormality. Normal appendix. Pelvis: No significant abnormality. Osseous Structures: No aggressive osseous lesion. Additional Findings: None IMPRESSION: 1. Thickened linear soft tissue seen within the postoperative bed of the left breast most likely due to scarring. No evidence of metastatic disease throughout the chest, abdomen or pelvis. Signer Name: Jostin Augustin MD Signed: 11/15/2020 2:08 PM Workstation Name: [id number]
== END 2020-11-15 09:03 | disposition home or self-care (01) ==
LOC: NM 09:02
PROVIDERS: ATTEND Internal Medicine Hematology & Oncology
DX: C50.412 Malignant neoplasm of upper-outer quadrant of left female breast (principal); M47.819 Spondylosis without myelopathy or radiculopathy, site unspecified
CPT/HCPCS: 36415; 71260; 74177; 78306; 82565; 84520; A9503; J1642; Q9967